=== PATIENT | male | born 1965 | race Caucasian/White ===

== ENCOUNTER → 2017-09-19 | Outpatient (CLI) | payer OTHER ==
[~2017-09-19] MED LIST: NO HOME MEDICATIONS
== END ==
LOC: COL.RAD 10:54
DX: I77.810 Thoracic aortic ectasia (principal)
CPT/HCPCS: Q9967

== ENCOUNTER → 2018-09-20 | Outpatient (CLI) | payer OTHER | LOC: COL.RAD 09-17 12:30 | DX: M99.71 Connective tissue and disc stenosis of intervertebral foramina of cervical region (principal); M47.816 Spondylosis without myelopathy or radiculopathy, lumbar region; M50.21 Other cervical disc displacement, high cervical region; M48.02 Spinal stenosis, cervical region | CPT/HCPCS: A9585 ==

== ENCOUNTER → 2019-11-27 | Outpatient (CLI) | payer OTHER, BC | LOC: COL.RAD 10-30 11:30 | DX: I77.810 Thoracic aortic ectasia (principal) | CPT/HCPCS: Q9967 ==

== ENCOUNTER 2020-10-23 10:01 | Day surgery (SDC) | payer OTHER, BC ==
[~2020-10-23] VITALS: Ht 185.4 cm; Wt 85.4 kg
[2020-10-23 10:20] VITALS: BP 125/79; PULSE 56; TEMP 97.3
[2020-10-23] MEDS ORDERED: RAPAFLO8 MG PO (10:25)
[2020-10-23 12:08] VITALS: BP 108/87; PULSE 67; TEMP 97
--- NOTE | 2020-10-23 12:08 | NUR ---
Pt to [facility] via cart from ENDO. Pt awake and alert. Denies pain or nausea. Pt ambulates to recliner with stand by assistance. Warm blanket given. Coffee given per pt request. Will continue to monitor. Call light within reach.
[2020-10-23 12:23] VITALS: BP 116/82; PULSE 55
--- NOTE | 2020-10-23 12:23 | NUR ---
Pt continues to rest. Denies needs. Call light within reach.
--- NOTE | 2020-10-23 12:40 | NUR ---
Discharge instructions reviewed. Pt voices understanding. IV site discontinued with all parts intact. Pt up to dress. Call light within reach.
--- NOTE | 2020-10-23 13:00 | NUR ---
Pt escorted to private car via wheel chair. Pt accompanied home by his son.
== END 2020-10-23 13:00 | disposition home or self-care (01) ==
LOC: SDCO 10:01
DX: Z12.11 Encounter for screening for malignant neoplasm of colon (principal); D12.0 Benign neoplasm of cecum; K64.1 Second degree hemorrhoids; Z80.0 Family history of malignant neoplasm of digestive organs; Z83.71 Family history of colonic polyps; Z20.828 Contact with and (suspected) exposure to other viral communicable diseases; Z79.899 Other long term (current) drug therapy; Z91.040 Latex allergy status
CPT/HCPCS: J2704; J7030

== ENCOUNTER → 2020-10-27 | Outpatient (CLI) | payer OTHER, BC ==
[~2020-10-27] MED LIST changes: +RAPAFLO8 MG PO
== END ==
LOC: COL.RAD 06:56
DX: I77.810 Thoracic aortic ectasia (principal)
CPT/HCPCS: Q9967